=== PATIENT | male | born 1935 | race Caucasian/White ===

== ENCOUNTER → 2019-12-04 | Outpatient (CLI) | payer MEDICARE, BC | END | disposition home or self-care (01) | LOC: LABWHC1 08:24 | PROVIDERS: ATTEND Family Medicine | DX: E87.5 Hyperkalemia (principal) | CPT/HCPCS: 36415; 84132 ==

== ENCOUNTER 2022-03-08 19:38 | Emergency (ER) | payer MEDICARE, BC ==
[2022-03-08 19:46] VITALS: TEMP 97.5
[2022-03-08] MEDS ORDERED: ACETAMINOPHEN TAB 500 MG TAB PO STA (20:17)
[2022-03-08] MEDS ORDERED: methylPREDNISolone SOD SUCCI 125 MG/2 ML VIAL IV STA (20:18)
[2022-03-08] MEDS ORDERED: IPRATROPIUM-ALBUTEROL 3 ML NEB INHALATION STA (20:18)
--- NOTE | 2022-03-08 20:55 | XR ---
EXAMINATION TYPE: XR chest 2V DATE OF EXAM: 03/08/2022 8:39 PM COMPARISON:Chest radiographs from is only 12/31/2011. TECHNIQUE: XR chest 2V Frontal and lateral views of the chest. CLINICAL INDICATION:Male, 86 years old with history of Chest Pain; FINDINGS: Lungs/Pleura: There is flattening of the diaphragm with increased lucency of the lungs. No evidence o f pneumothorax, pleural effusion or focal consolidation. Pulmonary vascularity: Unremarkable. Heart/mediastinum: Cardiomediastinal silhouette is unremarkable. Musculoskeletal: No acute osseous pathology. IMPRESSION: 1. No acute cardiopulmonary disease process. 2. COPD changes.
[2022-03-08 21:19] VITALS: RESP 20
[2022-03-08 21:27] LABS: Basophils # (A) 0.1 k/uL (0-0.2); Basophils % (A) 1 %; Eosinophils # (A) 0.4 k/uL (0-0.7); Eosinophils % (A) 3 %; HCT 40.4 % (39.0-53.0); HGB 12.8 gm/dL (13.0-17.5); Lymphocytes # (A) 1.3 k/uL (1.0-4.8); Lymphocytes % (A) 10 %; MCH 29.4 pg (25.0-35.0); MCHC 31.8 g/dL (31.0-37.0); MCV 92.5 fL (80.0-100.0); Mean Platelet Volume 10.3; Monocytes # (A) 0.8 k/uL (0-1.0); Monocytes % (A) 6 %; Neutrophils # (A) 10.5 k/uL (1.3-7.7); Neutrophils % (A) 79 %; Platelet Count 349 k/uL (150-450); RBC 4.37 m/uL (4.30-5.90); RDW 12.3 % (11.5-15.5); WBC 13.2 k/uL (3.8-10.6)
[2022-03-08 21:36] LABS: Albumin 3.8 g/dL (3.5-5.0); Calcium 8.6 mg/dL (8.4-10.2); Magnesium 2.3 mg/dL (1.6-2.3); Potassium 4.8 mmol/L (3.5-5.1); Total Bilirubin 0.5 mg/dL (0.2-1.3); Total Protein 7.2 g/dL (6.3-8.2)
[2022-03-08 21:39] LABS: INR 0.9 (<1.2); Partial Thromboplastin Time 27.3 sec (22.0-30.0)
[2022-03-08] MEDS ORDERED: DOXYCYCLINE 100 MG CAP PO STA (22:19)
[2022-03-08] MEDS ORDERED: LIDOCAINE 5% PATCH TOPICAL STA (22:24)
--- NOTE | 2022-03-08 22:25 | ED ---
General Adult HPI - General Chief complaint: Abdominal Pain Stated complaint: SOB, left side pain Time Seen by Provider: 03/08/22 20:00 Source: patient, RN notes reviewed, old records reviewed Mode of arrival: wheelchair - History of Present Illness Initial comments: Patient is an 86-year-old male with past medical history remarkable for chronic tobacco use, hypertension, COPD presents emergency Department complaining of chest wall pain. She has not states he has abdominal pain but he denies this. He is having left sided pain along his ribs under his armpit. States it is worse with coughing. Endorses a productive cough that is worse over the last few days of a greenish mucus. Is on Spiriva at home. States the pain is worse with movement of his trunk, as well as his left arm. The patient seems to be stretching. Denies any anterior wall chest pain. Denies any abdominal pain, nausea, vomiting. Denies any urinary complaints. His no other acute complaints at this time. Was vaccinated for COVID-19. Presents for further evaluation.Symptoms have been ongoing for multiple days. - Related Data Home Medications Medication Instructions Recorded Confirmed Simvastatin [Zocor] 20 mg PO DAILY 03/08/22 03/08/22 Tamsulosin HCl [Flomax] 0.4 mg PO DAILY 03/08/22 03/08/22 amLODIPine [Norvasc] 5 mg PO DAILY 03/08/22 03/08/22 carvediloL [Coreg] 1.5625 mg PO BID-W/MEALS 03/08/22 03/08/22 Previous Rx's Medication Instructions Recorded Albuterol Inhaler [Ventolin Hfa 1 puff INHALATION RT-QID #8 gm 03/08/22 Inhaler] Doxycycline [Vibramycin] 100 mg PO BID 7 Days #14 capsule 03/08/22 Lidocaine 5% Patch [Lidoderm 5% 1 patch TOPICAL DAILY PRN 7 Days 03/08/22 Patch] #7 patch predniSONE [Deltasone] 40 mg PO DAILY 5 Days #10 tab 03/08/22 Allergies Allergy/AdvReac Type Severity Reaction Status Date / Time NSAIDS (Non-Steroidal AdvReac Unknown Verified 03/08/22 20:59 Anti-Inflamma Childhood Penicillins AdvReac Unknown Verified 03/08/22 20:59 Childhood Review of Systems ROS Statement: Those systems with pertinent positive or pertinent negative responses have been documented in the HPI. Review of Systems: CONST: Denies fever EYES: Denies blurry vision ENT: Endorses nasal congestion C/V: Denies Chest pain RESP: Denies shortness of breath GI: Denies abdominal pain : Denies dysuria SKIN: Denies rash. MSK: Endorses left-sided rib pain NEURO: Denies headache ROS Other: All systems not noted in ROS Statement are negative. Past Medical History Past Medical History: COPD, Hypertension History of Any Multi-Drug Resistant Organisms: None Reported Past Surgical History: No Surgical Hx Reported Past Psychological History: No Psychological Hx Reported Smoking Status: Former smoker Past Alcohol Use History: None Reported Past Drug Use History: None Reported General Exam - General Exam Comments Initial Comments: General: Appears in no acute distress. HEAD: Normal with no signs of head trauma. EYES: PERRLA, EOMI, conjunctiva normal, no discharge. ENT: Hearing grossly intact, normal oropharynx. RESPIRATORY: Bilateral end expiratory wheezing. No rhonchi. Mildly hypoxic to 93-94% which is likely his baseline. No exertional dyspnea or difficulty breathing. C/V: Regular rate and rhythm. S1 and S2 auscultated, no edema, peripheral pulses 2+ and intact throughout ABD: Abd is soft, nontender, nondistended EXT: Normal range of motion, no obvious deformity SKIN: No rashes or lesions observed on exposed skin. NEURO: Alert and oriented 4. Course Vital Signs 03/08/22 03/08/22 03/08/22 19:40 20:50 21:17 Temperature 97.5 F L Pulse Rate 80 70 Respiratory 19 20 20 Rate Blood Pressure 167/83 147/85 O2 Sat by Pulse 93 L 94 L Oximetry 03/08/22 03/08/22 21:20 21:26 Temperature Pulse Rate 66 65 Respiratory Rate Blood Pressure O2 Sat by Pulse Oximetry Medical Decision Making - Medical Decision Making Based on the patient's presentation and physical exam, I do believe he is likely experiencing an acute COPD exacerbation as well as muscle skeletal rib pain on the left side. Has been present for 3 days. However we will obtain a cardiopulmonary workup including COVID-19 swab. He was in agreement this plan. He'll be given steroids as well as a breathing treatment. We given Tylenol for pain. EKG showed no signs of acute ischemia. Chest x-ray reveals no acute cardiopulmo nary process. However due to studies are remarkable for a leukocytosis of 13.2 which is likely reactive. Creatinine is minimally elevated to 1.26. There is mild hyponatremia of 133. Troponin is negative. Covid, flu swabs are negative. On repeat evaluation, patient's breath sounds are improved. There is less wheezing. Remaining vital signs have remained within normal limits and stable. I discussed results with him and I believe he is likely experiencing a COPD exacerbation as well as bronchitis with a muscle wall strain. He expressed understanding was in agreement. He will be given a dose of doxycycline prior to discharge as well as a lidocaine patch. He'll be given prescriptions for prednisone, albuterol inhaler, doxycycline, lidocaine patches. Patient was in agreement this plan. Patient's son was also in agreement this plan. He will be discharged home at this time. I will provide the patient with a prescription for prednisone, doxycycline, albuterol, lidocaine patch. I instructed the patient to follow up with their PCP in the next 3 days. I explained that the patient should return to the emergency department if they experience any worsening symptoms. Strict return precautions were discussed with the patient. The patient expressed understanding of these instructions. I answered all questions that the patient had. The patient was discharged home in good condition with their prescriptions and follow up information. - Lab Data Result diagrams: 03/08/22 21:09 03/08/22 21:09 Lab Results 03/08/22 03/08/22 03/08/22 Range/Units 21:09 21:09 21:09 WBC 13.2 H (3.8-10.6) k/uL RBC 4.37 (4.30-5.90) m/uL Hgb 12.8 L (13.0-17.5) gm/dL Hct 40.4 (39.0-53.0) % MCV 92.5 (80.0-100.0) fL MCH 29.4 (25.0-35.0) pg MCHC 31.8 (31.0-37.0) g/dL RDW 12.3 (11.5-15.5) % Plt Count 349 (150-450) k/uL MPV 10.3 Neutrophils % 79 % Lymphocytes % 10 % Monocytes % 6 % Eosinophils % 3 % Basophils % 1 % Neutrophils # 10.5 H (1.3-7.7) k/uL Lymphocytes # 1.3 (1.0-4.8) k/uL Monocytes # 0.8 (0-1.0) k/uL Eosinophils # 0.4 (0-0.7) k/uL Basophils # 0.1 (0-0.2) k/uL PT 10.0 (9.0-12.0) sec INR 0.9 (<1.2) APTT 27.3 (22.0-30.0) sec Sodium 133 L (137-145) mmol/L Potassium 4.8 (3.5-5.1) mmol/L Chloride 100 (98-107) mmol/L Carbon Dioxide 27 (22-30) mmol/L Anion Gap 6 mmol/L BUN 20 (9-20) mg/dL Creatinine 1.26 H (0.66-1.25) mg/dL Est GFR (CKD-EPI)AfAm 59 (>60 ml/min/1.73 sqM) Est GFR (CKD-EPI)NonAf 51 (>60 ml/min/1.73 sqM) Glucose 115 H (74-99) mg/dL Calcium 8.6 (8.4-10.2) mg/dL Magnesium 2.3 (1.6-2.3) mg/dL Total Bilirubin 0.5 (0.2-1.3) mg/dL AST 21 (17-59) U/L ALT 13 (4-49) U/L Alkaline Phosphatase 94 (38-126) U/L Troponin I (0.000-0.034) ng/mL Total Protein 7.2 (6.3-8.2) g/dL Albumin 3.8 (3.5-5.0) g/dL Coronavirus (PCR) (Not Detectd) Influenza Type A RNA (Not Detectd) Influenza Type B (PCR) (Not Detectd) 03/08/22 03/08/22 03/08/22 Range/Units 21:09 21:09 21:09 WBC (3.8-10.6) k/uL RBC (4.30-5.90) m/uL Hgb (13.0-17.5) gm/dL Hct (39.0-53.0) % MCV (80.0-100.0) fL MCH (25.0-35.0) pg MCHC (31.0-37.0) g/dL RDW (11.5-15.5) % Plt Count (150-450) k/uL MPV Neutrophils % % Lymphocytes % % Monocytes % % Eosinophils % % Basophils % % Neutrophils # (1.3-7.7) k/uL Lymphocytes # (1.0-4.8) k/uL Monocytes # (0-1.0) k/uL Eosinophils # (0-0.7) k/uL Basophils # (0-0.2) k/uL PT (9.0-12.0) sec INR (<1.2) APTT (22.0-30.0) sec Sodium (137-145) mmol/L Potassium (3.5-5.1) mmol/L Chloride (98-107) mmol/L Carbon Dioxide (22-30) mmol/L Anion Gap mmol/L BUN (9-20) mg/dL Creatinine (0.66-1.25) mg/dL Est GFR (CKD-EPI)AfAm (>60 ml/min/1.73 sqM) Est GFR (CKD-EPI)NonAf (>60 ml/min/1.73 sqM) Glucose (74-99) mg/dL Calcium (8.4-10.2) mg/dL Magnesium (1.6-2.3) mg/dL Total Bilirubin (0.2-1.3) mg/dL AST (17-59) U/L ALT (4-49) U/L Alkaline Phosphatase (38-126) U/L Troponin I <0.012 (0.000-0.034) ng/mL Total Protein (6.3-8.2) g/dL Albumin (3.5-5.0) g/dL Coronavirus (PCR) Not Detected (Not Detectd) Influenza Type A RNA Not Detected (Not Detectd) Influenza Type B (PCR) Not Detected (Not Detectd) - EKG Data -: EKG Interpreted by Me EKG Comments: 12-lead Electrocardiogram Interpretation Note EKG was reviewed and interpreted by myself. 12-lead ECG performed at 2048 is interpreted by me as revealing normal sinus rhythm at a rate of 65 beats per minute. [place] is normal. CT interval is 204 ms, QRS duration is 91 ms, QTc is 408 ms.. There were no ST or T wave abnormalities to suggest myocardial ischemia or injury. R wave progression across the precordium was satisfactory. By my interpretation this EKG is non-diagnostic for acute ischemia. Disposition Clinical Impression: COPD (chronic obstructive pulmonary disease), Bronchitis, Chest wall pain Disposition: HOME SELF-CARE Condition: Good Instructions (If sedation given, give patient instructions): Acute Bronchitis (ED), COPD (Chronic Obstructive Pulmonary Disease) (ED), Musculoskeletal Pain (ED) Prescriptions: predniSONE [Deltasone] 40 mg PO DAILY 5 Days #10 tab Lidocaine 5% Patch [Lidoderm 5% Patch] 1 patch TOPICAL DAILY PRN 7 Days #7 patch PRN Reason: Pain Albuterol Inhaler [Ventolin Hfa Inhaler] 1 puff INHALATION RT-QID #8 gm Doxycycline [Vibramycin] 100 mg PO BID 7 Days #14 capsule Is patient prescribed a controlled substance at d/c from ED?: No Referrals: Jovita Nelson DO [Primary Care Provider] - 1-2 days Time of Disposition: 22:20
[2022-03-08 22:43] VITALS: BP 144/96; PULSE 73
== END 2022-03-08 22:44 | disposition home or self-care (01) ==
LOC: EC 19:38
DX: J44.9 Chronic obstructive pulmonary disease, unspecified (principal); Z20.822 Contact with and (suspected) exposure to COVID-19; I10 Essential (primary) hypertension; Z87.891 Personal history of nicotine dependence; Z79.899 Other long term (current) drug therapy
CPT/HCPCS: 36415; 94640; 93005; 80053; 83735; 84484; 85025; 85610; 85730; 87502; 87635; 71046; 99285; 96374; J2930